=== PATIENT | female | born 1990 | race African-American/Black ===

== ENCOUNTER → 2020-11-16 | Day surgery (SDC) | payer BC ==
[~2020-11-16] MED LIST: ALBUTEROL0.63 MG/3 NEB; AMLODIPINE BESYL5 MG PO; BUPIVACAINE 0.25% 30ML SDV ONE; FENTANYL CITRATE/PF 100MCG/2 ML INJ ONE; LIDOCAINE 1% W/EPINEPHRINE 20 ML VIAL ONE; PROVENTIL HFA6.7 GM INH; SODIUM CHLORIDE 0.9% 50ML 100 ML ONE
[2020-11-16 13:49] VITALS: BP 137/87
== END | disposition home or self-care (01) ==
LOC: OR 09:05
PROVIDERS: ATTEND Orthopaedic Surgery
DX: S83.232A Complex tear of medial meniscus, current injury, left knee, initial encounter (principal); Z91.013 Allergy to seafood; I10 Essential (primary) hypertension; J45.909 Unspecified asthma, uncomplicated; Z01.810 Encounter for preprocedural cardiovascular examination; Z01.812 Encounter for preprocedural laboratory examination; Z20.822 Contact with and (suspected) exposure to COVID-19
CPT/HCPCS: 29880; 81025; 93005; J0690; J3010; U0002